=== PATIENT | female | born 1965 | race Asian ===

== ENCOUNTER 2018-03-14 16:58 | Inpatient (IN) | payer OTHER ==
[~2018-03-14] VITALS: Ht 152.4 cm; Wt 65.8 kg
--- NOTE | 2018-03-14 17:02 | NUR ---
Dr Kearns at the bedside for MSE.
--- NOTE | 2018-03-14 17:37 | NUR ---
Patient is resting comfortably in bed with eyes closed, NAD noted.
[2018-03-14 17:41] LABS: BASOPHILS % (AUTO) 0.3 % (0.0-2.0); EOSINOPHILS # (AUTO) 0.2 K/uL (0.0-0.7); HEMATOCRIT 30.5 % (31.2-41.9); HEMOGLOBIN 10.2 g/dL (10.9-14.3); LYMPHOCYTES # (AUTO) 1.9 K/uL (20.0-40.0); MEAN CORPUSCULAR HEMOGLOBIN 24.1 uug (24.7-32.8); MEAN CORPUSCULAR HGB CONC 33 g/dL (32.3-35.6); MEAN CORPUSCULAR VOLUME 72.3 fL (75.5-95.3); MONOCYTES # (AUTO) 0.4 K/uL (2.0-10.0); MONOCYTES % (AUTO) 4.3 % (0.0-11.0); NEUTROPHILS # (AUTO) 6.8 K/uL (1.8-8.9); NEUTROPHILS % (AUTO) 73.4 % (38.5-71.5); PLATELET COUNT (AUTO) 294 K/uL (179-408); RED BLOOD CELL COUNT(AUTO) 4.22 MIL/uL (3.63-4.92); WHITE BLOOD COUNT (AUTO) 9.3 K/uL (3.8-11.8)
[2018-03-14 17:42] LABS: ALANINE AMINOTRANSFERASE 28 U/L (14-59); ALKALINE PHOSPHATASE 126 U/L (50-136); ASPARTATE AMINOTRANSFERASE 18 U/L (15-37); BILIRUBIN,DIRECT < 0.1 mg/dL (0.0-0.2); BILIRUBIN,TOTAL 0.2 mg/dL (0.2-1.0); CARBON DIOXIDE 26 mmol/L (21-32); CHLORIDE 102 mmol/L (98-107); CREATININE 0.8 mg/dL (0.6-1.3); GLUCOSE 190 mg/dL (74-106); POTASSIUM 2.9 mmol/L (3.5-5.1); TOTAL PROTEIN, SERUM 7.7 g/dL (6.4-8.2); UREA NITROGEN, BLOOD 13 mg/dL (7-18)
[2018-03-14] MEDS ORDERED: NITROGLYCERIN OINT 1 GM PACKET TP ONE ×2 (18:00→18:19)
[2018-03-14] MEDS ORDERED: ASPIRIN 81 MG TAB.CHEW PO ONE (18:00)
[2018-03-14] MEDS ORDERED: POTASSIUM CHLORIDE 20 MEQ TAB.PRT.SR PO ONE (18:15)
[2018-03-14] MEDS ORDERED: ASPIRIN 81 MG TAB.CHEW ONE (18:18)
[2018-03-14] MEDS ORDERED: POTASSIUM CHLORIDE 20 MEQ TAB.PRT.SR ONE (18:19)
--- NOTE | 2018-03-14 18:28 | NUR ---
Dr Key accepted the pt to be admitted to Tele floor. Pt and family aware.
[2018-03-14] MEDS ORDERED: ATOR10TA PO (18:41)
[2018-03-14] MEDS ORDERED: IBUP-1957 PO (18:41)
[2018-03-14] MEDS ORDERED: ASPI81TA31 PO (18:41)
[2018-03-14] MEDS ORDERED: OMEP20CA10 PO (18:41)
--- NOTE | 2018-03-14 18:44 | NUR ---
Dr Moscoso at the bedside to see pt.
[2018-03-14] MEDS ORDERED: NITROGLYCERIN 0.4 MG/TAB BOTTLE SL PRN (19:00)
[2018-03-14] MEDS ORDERED: ONDANSETRON 4 MG/2 ML VIAL IV PRN (19:00)
[2018-03-14] MEDS ORDERED: ASPIRIN EC 81 MG TABLET.DR PO ONE (19:30)
[2018-03-14] MEDS ORDERED: METOPROLOL TARTRATE 25 MG TABLET PO ONE (19:30)
[2018-03-14 19:58] VITALS: BP 125/73
--- NOTE | 2018-03-14 21:00 | NUR ---
Nursing Note: Pt in no apparent distress at this time. Heart rhythm Sinus 68 on monitor. No complaints of pain at this time. Pt visited by daughter and son. Pt made comfortably and oriented to room. All admission paperwork completed. A and O x 3. Respirations even and unlabored on room air. Abdomen soft and non distended. Pt did complain of nausea and zofran was given. Bed in low and locked position. Call light in reach. Pt requested to have spend the night.
[2018-03-15 00:32] VITALS: BP 111/56
--- NOTE | 2018-03-15 01:00 | NUR ---
Nursing Note: Pt sleeping soundly at this time. Pt noted to be snoring. Asked pt if in pain or experiencing any other type of distress and patient declined. Bed in low and locked position at all times. Frequent visual checks. Continue plan of care.
[2018-03-15 03:43] LABS: CREATININE 0.7 mg/dL (0.6-1.3); MAGNESIUM 2.1 mg/dL (1.8-2.4); PHOSPHOROUS 3.9 mg/dL (2.5-4.9); POTASSIUM 3.8 mmol/L (3.5-5.1)
[2018-03-15] MEDS ORDERED: ACETAMINOPHEN 325 MG TABLET PO PRN (05:15)
[2018-03-15 05:26] VITALS: BP 115/83
--- NOTE | 2018-03-15 06:44 | NUR ---
Nursing Note: Pt verbalized that she was experiencing a headache. VS within normal limits. No complaints of chest pain at this time. Contacted MD. New order for Tylenol 650mg q6h. Bed in low and locked position. Call light in reach. Continue plan of care.
[2018-03-15] MEDS ORDERED: ASPIRIN EC 81 MG TABLET.DR PO SCH (09:00)
[2018-03-15] MEDS ORDERED: METOPROLOL TARTRATE 25 MG TABLET PO SCH (09:00)
[2018-03-15 10:58] VITALS: BP 110/86
--- NOTE | 2018-03-15 17:55 | NUR ---
Patient was given discharge instructions, iv removed, follow up appt. reminder for multispecialty clinic. Patients echocardiogram was reviewed by Dr. Saldivar and cleared for discharge. Patient refused wheelchair and was escorted to family vehicle by son and .
[2018-03-15] MEDS ORDERED: ATORVASTATIN 10 MG TABLET PO SCH (21:00)
[2018-03-16] MEDS ORDERED: PANTOPRAZOLE SODIUM 40 MG TABLET.DR PO SCH (07:00)
[2018-03-16] MEDS ORDERED: Medication Not On Formulary EA (Omeprazole 1 CAP) PO SCH (09:00)
[2018-03-16] MEDS ORDERED: ASPIRIN 81 MG TAB.CHEW PO SCH (09:00)
== END 2018-03-15 17:55 | disposition home or self-care (01) | DRG 203 ==
LOC: ER 16:59 → TELE 18:48
PROVIDERS: ADMIT Internal Medicine; ATTEND Internal Medicine
DX: M94.0 Chondrocostal junction syndrome [Tietze] (principal); J81.1 Chronic pulmonary edema; E78.5 Hyperlipidemia, unspecified; F41.0 Panic disorder [episodic paroxysmal anxiety]; Z79.82 Long term (current) use of aspirin; E87.6 Hypokalemia
CPT/HCPCS: 36415; 70030-TC; 71045; 83735; 84100; 85025; 93005; 93307; A4663; J2405